=== PATIENT | male | born 1955 | race Caucasian/White ===

== ENCOUNTER 2017-02-15 09:36 | Outpatient (CLI) | payer OTHER ==
[2017-02-15 14:22] LABS: HEMOGLOBIN A1C 0.36 g/dL
[2017-02-15 14:25] LABS: ALBUMIN/GLOBULIN RATIO 1.2 (1.0-2.2); BILIRUBIN,TOTAL 0.6 mg/dL (0.2-1.0); BUN - BLOOD UREA NITROGEN 9 mg/dL (6-20); CALCIUM 10.8 mg/dL (8.5-10.3); CARBON DIOXIDE - CO2 29 mmol/L (21-32); CHLORIDE 99 mmol/L (101-111); CHOL/HDL RATIO 7.4 (<5.0); CHOLESTEROL 222 mg/dL; CREATININE 0.8 mg/dL (0.6-1.2); GFR - MDRD 98 (>89); GLUCOSE 88 mg/dL (70-100); HDL CHOLESTEROL 30 mg/dL; LDL/HDL RATIO 5.7 (<3.6); POTASSIUM 4.3 mmol/L (3.5-5.0); SODIUM 134 mmol/L (135-145); TOTAL PROTEIN 7.6 g/dL (6.7-8.2); TRIGLYCERIDES 101 mg/dL; VLDL CHOLESTEROL 20 mg/dL
[2017-02-16 11:20] LABS: BASOPHILS % (AUTO) 0.3 %; EOSINOPHILS # (AUTO) 0.3 10^3/uL (0.0-0.7); EOSINOPHILS % (AUTO) 3.6 %; HCT - HEMATOCRIT 33.4 % (42.0-52.0); HGB - HEMOGLOBIN 11.3 g/dL (14.0-18.0); LYMPHOCYTES # (AUTO) 1.9 10^3/uL (1.5-3.5); LYMPHOCYTES % (AUTO) 20.8 %; MEAN CORPUSCULAR HEMOGLOBIN 30.9 pg (27.0-31.0); MEAN CORPUSCULAR HGB CONC 33.7 g/dL (32.0-36.0); MEAN CORPUSCULAR VOLUME 91.5 fL (80.0-94.0); MEAN PLATELET VOLUME 8.1 fL (7.4-11.4); MONOCYTES # (AUTO) 0.6 10^3/uL (0.0-1.0); MONOCYTES % (AUTO) 6.9 %; NEUTROPHILS # (AUTO) 6.2 10^3/uL (1.5-6.6); NEUTROPHILS % (AUTO) 68.4 %; NUCLEATED RED BLOOD CELLS AUTO 0.1 /100WBC; RED BLOOD COUNT 3.65 10^6/uL (4.70-6.10); RED CELL DISTRIBUTION WIDTH 13.5 % (12.0-15.0); UNCORRECTED WHITE BLOOD COUNT 9.1 x10^3/uL; WHITE BLOOD COUNT 9.1 x10^3/uL (4.8-10.8)
== END 2017-02-15 09:37 | disposition home or self-care (01) ==
LOC: LAB.WCP 09:36
PROVIDERS: ATTEND Physician Assistant Medical
DX: E11.9 Type 2 diabetes mellitus without complications (principal); J01.90 Acute sinusitis, unspecified
CPT/HCPCS: 36415; 80053; 80061; 83036; 85025

== ENCOUNTER 2017-02-17 15:05 | Outpatient (CLI) | payer OTHER ==
[2017-02-17] MEDS ORDERED: GADOBUTROL 7.5 MMOL/7.5 ML VIAL IVP ONE (16:41)
--- NOTE | 2017-02-17 17:51 | MRI Preliminary Report ---
Exam: MRI Brain W/WO IMPRESSION: 1. Heterogeneously mass centered in the suprasellar cistern with extension through the floor of the t hird ventricle and into the sella, basisphenoid bone, and clivus. 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 Pituitary macroadenoma or optic nerve glioma are possible bu t less likely. RADIA The call report notification system was initiated by Dr. Lobo Lema at 17:23 hrs on 02/17/17. The above findings were discussed with Dr. Pang by Dr. Lobo Lema at 17:50 hrs on 02/17/17 . SITE ID: [id number]
--- NOTE | 2017-02-17 17:54 | MRI Report ---
EXAM: MRI BRAIN WITHOUT AND WITH CONTRAST EXAM DATE: 02/17/2017 04:45 PM. CLINICAL HISTORY: 61-year-old man with headache, slurred speech, and weakness. COMPARISON: None. TECHNIQUE: Multiplanar, multisequence T1-weighted and fluid-sensitive MR sequences of the brain were performed. Sequences optimized for routine evaluation. Other: None. Without and with IV Contrast: 7.5 cc Gadavist. FINDINGS: Parenchyma: Enhancing extra-axial mass centered in the suprasellar cistern is described below. The pa renchyma demonstrates mild burden of nonspecific FLAIR hyperdensities in the deep cerebral and perive ntricular white matter, most consistent with sequelae of chronic small vessel ischemic disease and a common finding in this age group. No evidence of prior hemorrhage on susceptibility weighted sequence . No abnormal intraparenchymal enhancement. Pituitary, sella, and suprasellar cistern: Heterogeneously enhancing, generally solid mass is centere d in the suprasellar cistern. This extends superiorly through the floor of the third ventricle into t he anterior third ventricle where measures approximately 2.6 x 1.9 cm in maximum axial dimensions. Ma ss fills and mildly expands the sella and extends into the basisphenoid bone and clivus. Total cranio caudal extension is approximately 6.2 cm. Small cystic components are present within the third ventri chevy and also the posterior left sphenoid sinus. The pituitary stalk is partially visualized, but the pituitary gland has been replaced by heterogeneously enhancing mass. There is likely extension into t he left cavernous sinus. Ventricles and Extra-axial Spaces: Ventricles are symmetric and normal in size for age. Extra-axial s paces are unremarkable except for enhancing mass lesion centered in the suprasellar cistern described above. Orbits: Unremarkable. Sinuses: Cystic lesion with fluid fluid level is present in left sphenoid sinus, likely extension of enhancing sellar mass described above, possibly with superimposed mucosal thickening. Major Vascular Flow Voids: Intact. Dural Venous Sinuses and Major Central Veins: Patent on post-contrast images. IMPRESSION: 1. Heterogeneously mass centered in the suprasellar cistern with extension through the floor of the t hird ventricle and into the sella, basisphenoid bone, and clivus. 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 Pituitary macroadenoma or optic nerve glioma are possible bu t less likely. RADIA The call report notification system was initiated by Dr. Lobo Lema at 17:23 hrs on 02/17/17. The above findings were discussed with Dr. Pang by Dr. Lobo Lema at 17:50 hrs on 02/17/17 . Referring Provider Line: [phone] SITE ID: [id number]
== END 2017-02-17 15:06 | disposition home or self-care (01) ==
LOC: MERGE 15:05 → DI 15:05
PROVIDERS: ATTEND Physician Assistant Medical
DX: G93.89 Other specified disorders of brain (principal); R93.8 Abnormal findings on diagnostic imaging of other specified body structures; R51 Headache; R47.81 Slurred speech; R53.1 Weakness
CPT/HCPCS: 70553

== ENCOUNTER 2017-02-18 18:33 | Outpatient (CLI) | payer OTHER ==
[2017-02-18] MEDS ORDERED: IOPAMIDOL-300 50 ML VIAL ONE (18:40)
[2017-02-18] MEDS ORDERED: IOPAMIDOL-300 100 ML VIAL ONE (18:40)
--- NOTE | 2017-02-18 21:55 | Ultrasound Report ---
EXAM: ABDOMEN ULTRASOUND EXAM DATE: 02/18/2017 07:47 PM. CLINICAL HISTORY: ELEVATED LIVER ENZYMES. COMPARISON: Abdomen CT today. TECHNIQUE: Real-time scanning was performed with static images obtained. FINDINGS: Liver: There are multiple solid and heterogeneous to isoechoic masses located within the liver. The l argest mass measures 7 cm in diameter. At least 6 discrete solid liver masses are present. 19.2 cm. M ain portal vein flow: Hepatopetal. Gallbladder: There is a small gallstone. The gallbladder is partially contracted. No gallbladder wall thickening. Negative ultrasound Juarez's sign. Biliary System: Common bile duct measures 6 mm. No intrahepatic or extrahepatic ductal dilatation. Pancreas: Visualized portion is unremarkable. Kidneys: Right: 11.6 x 4.8 x 5.3 cm longitudinally. Normal. No contour-deforming mass, stones, or hydronephros is. Left: 10.3 x 6.6 x 5.0 cm longitudinally. Normal. No contour-deforming mass, stones, or hydronephrosi s. Spleen: 11.9 x 4.8 x 10.2 cm. Normal in size and echotexture. Aorta and Inferior Vena Cava: Nondilated IMPRESSION: 1. Multiple solid liver masses, as seen on abdominal CT and most consistent with hepatic metastatic d isease. Largest lesion 7 cm. RADIA Referring Provider Line: [phone] SITE ID: [id number]
== END 2017-02-18 18:34 | disposition home or self-care (01) ==
LOC: MERGE 18:33 → DI 18:33
PROVIDERS: ATTEND Physician Assistant Medical
DX: R16.0 Hepatomegaly, not elsewhere classified (principal)
CPT/HCPCS: 76700; Q9967

== ENCOUNTER 2017-02-18 18:37 | Outpatient (CLI) | payer OTHER ==
[2017-02-18] MEDS ORDERED: IOPAMIDOL-300 50 ML VIAL PO ONE (18:46)
[2017-02-18] MEDS ORDERED: IOPAMIDOL-300 100 ML VIAL IVP ONE (21:30)
--- NOTE | 2017-02-18 23:33 | CT Preliminary Report ---
Exam: CT Abdomen/Pelvis W/ IMPRESSION: 1. Metastatic liver disease. 2. Diverticulosis. RADIA The above findings were discussed with ABUNDIO Olmedo by Dr. Armando De Luna at 23:32 hrs on 02/18/17. SITE ID: [id number]
--- NOTE | 2017-02-18 23:36 | CT Report ---
EXAM: CT CHEST EXAM DATE: 02/18/2017 09:34 PM. CLINICAL HISTORY: COUGH/ELEVATED LIVER ENZYMES, BRAIN TUMOR. COMPARISONS: None. TECHNIQUE: Routine helical CT imaging was performed through the chest. IV contrast: 100 mL Isovue-300 . Reconstructions: Coronal and sagittal. In accordance with CT protocol optimization, one or more of the following dose reduction techniques w ere utilized for this exam: automated exposure control, adjustment of mA and/or KV based on patient s ize, or use of iterative reconstructive technique. FINDINGS: Lungs/Pleura: There is a 3.0 x 2.5 cm perihilar, right middle lobe nodule. The nodule contains eccent tammy calcifications and abuts the pericardium, oblique fissure and right middle lobe bronchus. No othe r nodules or airspace consolidation seen. There is bilateral upper lobe emphysema. No pleural effusio n or pneumothorax. Mediastinum: There is a 1.3 cm short axis subcarinal lymph node. No pathologically enlarged paratrach eal, hilar or AP window lymph nodes seen. Bones: Unremarkable. Visualized Abdomen: There are multiple hypodense hepatic masses measuring up to 6.6 cm. Other: None. IMPRESSION: 1. There is a 3 cm, perihilar right middle lobe nodule highly concerning for primary pulmonary malign deborah. 2. Hepatic metastases. 3. Borderline enlarged subcarinal lymph node. 4. Emphysema. RADIA The call report notification system was initiated by Dr. Armando De Luna at 23:26 hrs on 02/18/17. The above findings were discussed with ABUNDIO Olmedo by Dr. Armando De Luna at 23:32 hrs on 02/18/17. Referring Provider Line: [phone] SITE ID: [id number]
--- NOTE | 2017-02-18 23:36 | CT Report ---
EXAM: CT ABDOMEN AND PELVIS EXAM DATE: 02/18/2017 09:34 PM. CLINICAL HISTORY: COUGH/ELEVATED LIVER ENZYMES, BRAIN TUMOR. COMPARISONS: None. TECHNIQUE: Routine helical CT imaging was performed through the abdomen and pelvis. IV contrast: 100 mL Isovue-300. Enteric contrast: No. Reconstructions: Coronal and sagittal. In accordance with CT protocol optimization, one or more of the following dose reduction techniques w ere utilized for this exam: automated exposure control, adjustment of mA and/or KV based on patient s ize, or use of iterative reconstructive technique. FINDINGS: Lung Bases: Unremarkable. Liver: There are multiple ill-defined hypodense masses scattered throughout the liver with largest in the inferior aspect of the right hepatic lobe measuring 7.3 cm. No associated intrahepatic bile duct dilatation. Gallbladder/Bile Ducts: Unremarkable. Spleen: Normal. Pancreas: Normal. Adrenal Glands: Normal. Kidneys: Normal. No masses or hydronephrosis. Peritoneal Cavity/Bowel: Diverticulosis, no diverticulitis or other acute inflammatory process. No sarah wel obstruction, free air or fluid collections. The appendix is well visualized and normal. Pelvic Organs: Normal. The bladder and visualized pelvic organs are within normal limits. Vasculature: Atherosclerotic aortoiliac disease. No aneurysms Bones: No significant abnormality. Other: None. IMPRESSION: 1. Metastatic liver disease. 2. Diverticulosis. RADIA The above findings were discussed with ABUNDIO Olmedo by Dr. Armando De Luna at 23:32 hrs on 02/18/17. Referring Provider Line: [phone] SITE ID: [id number]
== END 2017-02-18 18:38 | disposition home or self-care (01) ==
LOC: DI 18:37 → MERGE 18:37 → DI 18:38
PROVIDERS: ATTEND Physician Assistant Medical
DX: C78.7 Secondary malignant neoplasm of liver and intrahepatic bile duct (principal); R91.1 Solitary pulmonary nodule; R59.0 Localized enlarged lymph nodes; J43.9 Emphysema, unspecified; K57.90 Diverticulosis of intestine, part unspecified, without perforation or abscess without bleeding; R16.0 Hepatomegaly, not elsewhere classified
CPT/HCPCS: 71260; 74177; Q9967; 76700

== ENCOUNTER 2017-02-19 12:50 | Emergency (ER) | payer OTHER ==
--- NOTE | 2017-02-19 13:30 | ED Physician Documentation ---
PD HPI ALTERED MENTAL STATUS - Stated complaint Stated Complaint: CONFUSION - Chief complaint Chief Complaint: General - History obtained from History obtained from: Patient, Family (sister) - History of Present Illness Timing - onset: How many weeks ago (1-2 weeks of feeling weak, worsening consistently and having trouble walking the past 2-3 days. Near falling, but has not fallen as yet. Has had right posterior headache for the past 3-4 months. 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 Back home the past week as was released from duty early due to symptoms. Seen by PCP in office and has had MRI brain and CT chest/abd in the past 2 days with results showing brain tumor as well as lung tumor and liver mets. More difficulty walking and is more confused today, so PCP referred pt to ER after talking with Dr. Petersen, Oncology at [facility], whose advise was fluids, steroids for 1-2 days then arrange for outpt Oncology.) Timing - details: Gradual onset, Still present (worsening the past 1-2 weeks and then even worse the past couple days.) Quality / character: Confused, Other (general weakness and difficulty walking.) . No: Agitated Associated symptoms: Headache, General weakness. No: Fever, Dyspnea, Cough, NVD , Focal weakness, Seizure activity, Syncope Contributing factors: No: Anticoagulated, Recent med change, Recent illness, Recent injury, Intoxicated Basline status: Alert and oriented X 3, Ambulatory Similar symptoms before: Has not had sx before Recently seen: Clinic (see above) Review of Systems Constitutional: reports: Fatigue, Weight Loss (about 60 lbs in the past 3-4 months.). denies: Fever, Chills, Myalgias Eyes: denies: Loss of vision, Decreased vision Nose: denies: Rhinorrhea / runny nose, Congestion Throat: denies: Sore throat Cardiac: denies: Chest pain / pressure, Palpitations Respiratory: reports: Cough. denies: Dyspnea, Wheezing GI: reports: Nausea, Diarrhea (large loose stool 1-2 times daily, with some dark color. No blood.). denies: Vomiting, Constipation : denies: Dysuria, Frequency Neurologic: reports: Generalized weakness, Difficulty speaking, Confused, Headache. denies: Focal weakness, Numbness, Head injury Psychiatric: denies: Depressed Endocrine: reports: Weight loss. denies: Weight gain, Easy bruising / bleeding Immunocompromised: denies: Immunocompromised PD PAST MEDICAL HISTORY - Past Medical History Cardiovascular: None Respiratory: None Neuro: None Endocrine/Autoimmune: Type 2 diabetes (oral meds only and watches diet. ) GI: None Psych: None - Present Medications Home Medications: Ambulatory Orders Medication Instructions Recorded Confirmed Levothyroxine [Synthroid] 125 mcg PO QDAC 02/19/17 02/19/17 Metoprolol Succinate 25 mg PO 02/19/17 metFORMIN [Glucophage] 500 mg PO ONCE 02/19/17 02/19/17 - Allergies Allergies/Adverse Reactions: Allergies Allergy/AdvReac Type Severity Reaction Status Date / Time sebastián conde Allergy Rash Uncoded 02/19/17 14:08 - Living Situation Living Situation: reports: Alone Living Arrangement: reports: At home PD ED PE NORMAL - Vitals Vital signs reviewed: Yes - General General: No acute distress, Well developed/nourished, Other (slightly sleepy and slow to answer questions. ) - HEENT HEENT: Atraumatic, PERRL, Ears normal, Pharynx benign. No: Moist mucous membranes - Neck Neck: Supple, no meningeal sign, No adenopathy - Cardiac Cardiac: RRR, No murmur - Respiratory Respiratory: Clear bilaterally - Abdomen Abdomen: Normal bowel sounds, Soft, Non tender - Male Male : Deferred - Rectal Rectal: Other (brown stool in vault, guiac negative) - Back Back: No CVA TTP - Derm Derm: Normal color, Warm and dry - Extremities Extremities: No tenderness to palpate, Normal ROM s pain, No edema - Neuro Neuro: book illustrator 2-12 intact, No sensory deficit, Normal speech (but slow to answer), Other (general weakness with needing help getting up and walking. ) - Psych Psych: Normal mood Results - Vitals Vitals: Vital Signs - 24 hr 02/19/17 02/19/17 13:05 15:08 Temperature 37.2 C Heart Rate 90 84 Respiratory 14 16 Rate Blood Pressure 90/63 95/61 O2 Saturation 97 98 Oxygen O2 Source Room air - Labs Labs: Laboratory Tests 02/19/17 02/19/17 02/19/17 14:27 14:27 14:28 WBC 10.3 RBC 2.99 L Hgb 9.2 L Hct 26.3 L MCV 87.9 MCH 30.8 MCHC 35.1 RDW 12.8 Plt Count 251 MPV 7.4 Neut # 7.6 H Lymph # 1.7 [place] # 0.8 Eos # 0.2 Baso # 0.0 Absolute Nucleated RBC 0.00 Nucleated RBCs 0.0 Sodium 129 L Potassium 3.7 Chloride 96 L Carbon Dioxide 24 Anion Gap 9.0 BUN 13 Creatinine 0.7 Estimated GFR (MDRD) 115 Glucose 95 POC Whole Bld Glucose 49 L* Calcium 10.0 Magnesium 1.7 Total Bilirubin 1.2 H AST 42 ALT 15 Alkaline Phosphatase 91 Total Protein 7.2 Albumin 3.7 Globulin 3.5 Albumin/Globulin Ratio 1.1 Lipase 35 02/19/17 02/19/17 14:52 17:26 WBC RBC Hgb Hct MCV MCH MCHC RDW Plt Count MPV Neut # Lymph # [place] # Eos # Baso # Absolute Nucleated RBC Nucleated RBCs Sodium Potassium Chloride Carbon Dioxide Anion Gap BUN Creatinine Estimated GFR (MDRD) Glucose POC Whole Bld Glucose 137 H 139 H Calcium Magnesium Total Bilirubin AST ALT Alkaline Phosphatase Total Protein Albumin Globulin Albumin/Globulin Ratio Lipase PD MEDICAL DECISION MAKING - ED course Complexity details: reviewed results, re-evaluated patient (Mentation is still slow after IV fluids and improved BP (to over 100) and with blood sugar good. Presume effect of tumor. ), d/w patient, d/w outside solar sales consultant (Dr. Choi, Oncology , who felt expedited workup is appropriate and I feel admission needed given his level of mentation and difficulty with walking. He had imaging outpt the past 2 days so I did not repeat these now. Hospitalist at [facility], Dr. Mix , accepts the patient. ) Departure - Departure Disposition: 02 Transfer Acute Care Hosp Clinical Impression: Brain tumor, Dehydration, Transient hypotension, Hypoglycemia Altered mental status Qualifiers: Altered mental status type: stupor Qualified Code(s): R40.1 - Stupor Condition: Stable Record reviewed to determine appropriate education?: Yes
[2017-02-19] MEDS ORDERED: SODIUM CHLORIDE 0.9% 1,000 ML IV ONE ×3 (14:08→17:34)
[2017-02-19] MEDS ORDERED: ACETAMINOPHEN 325 MG TABLET PO STA (14:08)
[2017-02-19] MEDS ORDERED: MORPHINE 2 MG/ML SYRINGE IVP STA (14:08)
[2017-02-19] MEDS ORDERED: FAMOTIDINE 20 MG/50 ML 50 ML IV ONE ×2 (14:08→14:19)
[2017-02-19] MEDS ORDERED: DEXAMETHASONE 10 MG/ML VIAL IVP STA (14:09)
[2017-02-19] MEDS ORDERED: DEXAMETHASONE 10 MG/ML VIAL ONE (14:18)
[2017-02-19] MEDS ORDERED: MORPHINE 2 MG/ML SYRINGE ONE (14:18)
[2017-02-19] MEDS ORDERED: ACETAMINOPHEN 325 MG TABLET PO ONE (14:18)
[2017-02-19] MEDS ORDERED: SODIUM CHLORIDE FLUSH 0.9% 10 ML SYRINGE IVP ONE (14:19)
[2017-02-19 14:33] LABS: BASOPHILS % (AUTO) 0.4 %; EOSINOPHILS # (AUTO) 0.2 10^3/uL (0.0-0.7); EOSINOPHILS % (AUTO) 1.6 %; HCT - HEMATOCRIT 26.3 % (42.0-52.0); HGB - HEMOGLOBIN 9.2 g/dL (14.0-18.0); LYMPHOCYTES # (AUTO) 1.7 10^3/uL (1.5-3.5); LYMPHOCYTES % (AUTO) 16.4 %; MEAN CORPUSCULAR HEMOGLOBIN 30.8 pg (27.0-31.0); MEAN CORPUSCULAR HGB CONC 35.1 g/dL (32.0-36.0); MEAN CORPUSCULAR VOLUME 87.9 fL (80.0-94.0); MEAN PLATELET VOLUME 7.4 fL (7.4-11.4); MONOCYTES # (AUTO) 0.8 10^3/uL (0.0-1.0); MONOCYTES % (AUTO) 7.8 %; NEUTROPHILS # (AUTO) 7.6 10^3/uL (1.5-6.6); NEUTROPHILS % (AUTO) 73.8 %; RED BLOOD COUNT 2.99 10^6/uL (4.70-6.10); RED CELL DISTRIBUTION WIDTH 12.8 % (12.0-15.0); UNCORRECTED WHITE BLOOD COUNT 10.3 x10^3/uL; WHITE BLOOD COUNT 10.3 x10^3/uL (4.8-10.8)
[2017-02-19] MEDS ORDERED: DEXTROSE 50% ABBOJECT 25 GM/50 ML SYRINGE IVP STA (14:46)
[2017-02-19 14:51] LABS: ALBUMIN/GLOBULIN RATIO 1.1 (1.0-2.2); BILIRUBIN,TOTAL 1.2 mg/dL (0.2-1.0); CREATININE 0.7 mg/dL (0.6-1.2); MAGNESIUM 1.7 mg/dL (1.7-2.8); POTASSIUM 3.7 mmol/L (3.5-5.0); TOTAL PROTEIN 7.2 g/dL (6.7-8.2)
[2017-02-19 17:55] VITALS: BP 139/73
== END 2017-02-19 19:04 | disposition short-term general hospital (02) ==
LOC: MERGE 12:50 → ED 12:50
DX: D49.6 Neoplasm of unspecified behavior of brain (principal); D49.1 Neoplasm of unspecified behavior of respiratory system; D49.0 Neoplasm of unspecified behavior of digestive system; E86.0 Dehydration; I95.89 Other hypotension; E11.649 Type 2 diabetes mellitus with hypoglycemia without coma; Z79.84 Long term (current) use of oral hypoglycemic drugs; R41.82 Altered mental status, unspecified
CPT/HCPCS: 36415; 80053; 83690; 83735; 85025; 96361; 96374; 96375; 99285; A9270; J2270; 84443; 85610; 85730; 86850; 86900; 86901; 99284

== ENCOUNTER 2017-03-12 17:34 | Emergency (ER) | payer OTHER ==
[2017-03-12] MEDS ORDERED: SODIUM CHLORIDE 0.9% 1,000 ML IV ONE ×2 (18:19→19:11)
--- NOTE | 2017-03-12 18:37 | ED Physician Documentation ---
PD HPI HEADACHE - Stated complaint Stated Complaint: HILARIO - Chief complaint Chief Complaint: Neuro - History obtained from History obtained from: Patient, Family - History of Present Illness Timing - onset: Today Timing - onset during: Rest Timing - duration: Days (1) Timing - details: Gradual onset Pain level max: 8 Pain level now: 8 Worst headache ever?: No: Worst headache ever? Location: Global Quality: Throbbing, Aching, Tightness. No: Thunderclap Associated symptoms: Nausea, Vomiting. No: Fever, Stiff neck, Weakness, Numbness, Syncope, Seizure, Eye pain, Vision changes Improved by: Rest, Dark room Worsened by: Light, Noise Contributing factors: No: Anticoagulated, Possible carbon monoxide, Hypertension , Recent illness, Trauma Similar symptoms before: Diagnosis (brain tumor) - Additional information Additional information: after radiation therapy today for neuroendocrine tumor. Sees Dr. Mc at [facility] for oncology. States unable to keep his oxycodone down. Family states has been hypotensive for the past several weeks. Review of Systems Ten Systems: 10 systems reviewed and negative Constitutional: denies: Fever, Chills Ears: denies: Ear pain Nose: denies: Rhinorrhea / runny nose, Congestion Throat: denies: Sore throat Cardiac: denies: Chest pain / pressure Respiratory: denies: Cough GI: reports: Nausea, Vomiting. denies: Abdominal Pain, Hematemesis, Bloody / black stool : denies: Dysuria, Frequency, Hesitancy, Incontinent Skin: denies: Rash Musculoskeletal: denies: Neck pain, Back pain Neurologic: denies: Focal weakness, Numbness, Confused, Altered mental status PD PAST MEDICAL HISTORY - Past Medical History Cardiovascular: None Respiratory: None Neuro: None Endocrine/Autoimmune: Type 2 diabetes GI: None Psych: None - Past Surgical History Past Surgical History: No - Present Medications Home Medications: Ambulatory Orders Medication Instructions Recorded Confirmed Levothyroxine [Synthroid] 125 mcg PO QDAC 02/19/17 03/12/17 Cortisone Acetate 25 mg PO DAILY 03/12/17 03/12/17 Dexamethasone [Decadron] 4 mg PO DAILY #20 tablet 03/12/17 Ondansetron Odt [Zofran] 4 mg TL Q6H PRN #20 tablet 03/12/17 oxyCODONE ER [OxyCONTIN] 10 mg PO DAILY 03/12/17 03/12/17 - Allergies Allergies/Adverse Reactions: Allergies Allergy/AdvReac Type Severity Reaction Status Date / Time sebastián conde Allergy Rash Uncoded 02/19/17 14:08 - Social History Does the pt smoke?: Yes Smoking Status: Current every day smoker Does the pt drink ETOH?: No Does the pt have substance abuse?: No - Immunizations Immunizations are current?: No PD ED PE NORMAL - Vitals Vital signs reviewed: Yes - General General: Alert and oriented X 3, No acute distress - HEENT HEENT: Atraumatic, PERRL, EOMI, Other (dry mouth and lips) - Neck Neck: Supple, no meningeal sign - Cardiac Cardiac: RRR, Strong equal pulses - Respiratory Respiratory: No respiratory distress, Clear bilaterally - Abdomen Abdomen: Soft, Non tender, Non distended - Back Back: No spinal TTP - Derm Derm: Warm and dry - Extremities Extremities: No edema - Neuro Neuro: Alert and oriented X 3, shift supervisor film processing 2-12 intact, No motor deficit, No sensory deficit, Normal speech - Psych Psych: Normal mood, Normal affect Results - Vitals Vitals: Vital Signs - 24 hr 03/12/17 03/12/17 03/12/17 17:48 20:23 20:31 Temperature 37.4 C Heart Rate 85 76 Respiratory 16 12 Rate Blood Pressure 80/53 L 94/68 O2 Saturation 92 87 L 94 03/12/17 21:56 Temperature 36.3 C L Heart Rate 83 Respiratory 15 Rate Blood Pressure 94/63 O2 Saturation 98 Oxygen O2 Source Nasal cannula Oxygen Flow Rate 2 - Labs Labs: Laboratory Tests 03/12/17 03/12/17 18:32 18:32 WBC 13.1 H RBC 3.73 L Hgb 11.4 L Hct 33.7 L MCV 90.3 MCH 30.5 MCHC 33.7 RDW 15.4 H Plt Count 292 MPV 7.4 Neut # 10.6 H Lymph # 1.4 L [place] # 0.9 Eos # 0.3 Baso # 0.1 Absolute Nucleated RBC 0.00 Nucleated RBC % 0.0 Sodium 133 L Potassium 4.7 Chloride 92 L Carbon Dioxide 31 Anion Gap 10.0 BUN 18 Creatinine 1.0 Estimated GFR (MDRD) 76 L Glucose 95 Calcium 11.1 H Total Bilirubin 0.7 AST 39 ALT 15 Alkaline Phosphatase 136 H Total Protein 7.7 Albumin 4.2 Globulin 3.5 Albumin/Globulin Ratio 1.2 Lipase 34 PD MEDICAL DECISION MAKING - ED course Complexity details: reviewed results, re-evaluated patient, considered differential, d/w patient, d/w family, d/w underwriting consultant (Dr. So automation design engineer for Dr. 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 Given a dose of dexamethasone after discussion with Dr. Greene. Given IV fluids and feels significantly better. Headache resolved in the emergency department. Blood pressure improved, though still mildly hypotensive. Family states this is normal. Tolerating p.o. without difficulty here. He is well- appearing, nontoxic. Will hold off on further workup at this time. We will start him on dexamethasone for home as well. Patient and family counseled regarding signs and symptoms for which I believe and urgent re-evaluation would be necessary. Patient with good understanding of and agreement to plan and is comfortable going home at this time This document was made in part using voice recognition software. While efforts are made to proofread this document, sound alike and grammatical errors may occur. Patient did become mildly hypoxic when sleeping, but was taken off oxygen prior to discharge and was 98% on room air. Departure - Departure Disposition: 01 Home, Self Care Clinical Impression: Dehydration, Brain tumor Condition: Good Instructions: ED Dehydration Follow-Up: your,doctor in 3 days [Other] Prescriptions: Dexamethasone [Decadron] 4 mg PO DAILY #20 tablet Ondansetron Odt [Zofran] 4 mg TL Q6H PRN #20 tablet PRN Reason: Nausea / Vomiting Comments: Return if you worsen. Drink plenty of fluids and rest. Discharge Date/Time: 03/12/17 22:11
[2017-03-12 18:43] LABS: BASOPHILS # (AUTO) 0.1 10^3/uL (0.0-0.1); BASOPHILS % (AUTO) 0.5 %; EOSINOPHILS # (AUTO) 0.3 10^3/uL (0.0-0.7); HCT - HEMATOCRIT 33.7 % (42.0-52.0); HGB - HEMOGLOBIN 11.4 g/dL (14.0-18.0); LYMPHOCYTES # (AUTO) 1.4 10^3/uL (1.5-3.5); LYMPHOCYTES % (AUTO) 10.5 %; MEAN CORPUSCULAR HEMOGLOBIN 30.5 pg (27.0-31.0); MEAN CORPUSCULAR HGB CONC 33.7 g/dL (32.0-36.0); MEAN CORPUSCULAR VOLUME 90.3 fL (80.0-94.0); MEAN PLATELET VOLUME 7.4 fL (7.4-11.4); MONOCYTES # (AUTO) 0.9 10^3/uL (0.0-1.0); MONOCYTES % (AUTO) 6.6 %; NEUTROPHILS # (AUTO) 10.6 10^3/uL (1.5-6.6); NEUTROPHILS % (AUTO) 80.4 %; RED BLOOD COUNT 3.73 10^6/uL (4.70-6.10); RED CELL DISTRIBUTION WIDTH 15.4 % (12.0-15.0); UNCORRECTED WHITE BLOOD COUNT 13.1 x10^3/uL; WHITE BLOOD COUNT 13.1 x10^3/uL (4.8-10.8)
[2017-03-12 18:55] LABS: ALBUMIN/GLOBULIN RATIO 1.2 (1.0-2.2); BILIRUBIN,TOTAL 0.7 mg/dL (0.2-1.0); CALCIUM 11.1 mg/dL (8.5-10.3); POTASSIUM 4.7 mmol/L (3.5-5.0); TOTAL PROTEIN 7.7 g/dL (6.7-8.2)
[2017-03-12] MEDS ORDERED: HYDROmorphone 1 MG/ML CARPUJECT IVP STA (19:42)
[2017-03-12] MEDS ORDERED: DEXAMETHASONE 10 MG/ML VIAL IVP STA (20:05)
[2017-03-12] MEDS ORDERED: DEXAMETHASONE 10 MG/ML VIAL ONE ×2 (20:18→20:22)
[2017-03-12] MEDS ORDERED: SODIUM CHLORIDE FLUSH 0.9% 10 ML SYRINGE IVP ONE (20:24)
[2017-03-12 21:57] VITALS: BP 94/63
== END 2017-03-12 22:11 | disposition home or self-care (01) ==
LOC: ED 17:34
DX: E86.0 Dehydration (principal); D3A.8 Other benign neuroendocrine tumors; E11.9 Type 2 diabetes mellitus without complications; F17.200 Nicotine dependence, unspecified, uncomplicated; Z92.3 Personal history of irradiation
CPT/HCPCS: 36415; 80053; 83690; 85025; 96374; 99284